=== PATIENT | female | born 1985 | race Caucasian/White ===

== ENCOUNTER 2018-06-15 10:07 | Outpatient (CLI) | payer OTHER | END 2018-06-15 10:10 | disposition home or self-care (01) | LOC: SONOGRAMA 10:07 | DX: E04.1 Nontoxic single thyroid nodule (principal) ==

== ENCOUNTER 2020-04-02 10:15 | Inpatient (IN) | payer OTHER ==
[~2020-04-02] VITALS: Ht 154.9 cm; Wt 90.7 kg
[2020-04-02] MEDS ORDERED: SYNTHROID75 MCG PO (11:54)
[2020-04-11] MEDS ORDERED: IBUPROFEN800 MG PO (06:17)
[2020-04-11] MEDS ORDERED: NEURONTIN600 MG PO (06:17)
[2020-04-11] MEDS ORDERED: SIMETHICONE125 M1 PO (06:17)
== END 2020-04-11 08:33 | disposition home or self-care (01) | DRG 743 ==
LOC: ADM 10:15 → EDSTATUS 10:15 → O/R 04-09 05:43 → OB/GYN 04-09 05:43
PROVIDERS: ADMIT Obstetrics & Gynecology; ATTEND Obstetrics & Gynecology
PROC: 0UT90ZZ Resection of Uterus, Open Approach (ICD-10-PCS; principal; 2020-04-09 07:00)
DX: D26.1 Other benign neoplasm of corpus uteri (principal); N72 Inflammatory disease of cervix uteri; N73.6 Female pelvic peritoneal adhesions (postinfective); N93.8 Other specified abnormal uterine and vaginal bleeding; E03.8 Other specified hypothyroidism